=== PATIENT | female | born 1960 | race Caucasian/White ===

== ENCOUNTER 2020-11-23 16:53 | Inpatient (IN) | payer MEDICARE, OTHER ==
[~2020-11-23] VITALS: Ht 167.6 cm; Wt 60.3 kg
[2020-11-23] MEDS ORDERED: NS 1,000 ML IV SCH ×2 (18:30→21:20)
[2020-11-23] MEDS ORDERED: ACETAMINOPHEN 325 MG TAB PO ONE (18:30)
[2020-11-23] MEDS ORDERED: cefTRIAXone SOD 2 GM in D5W MINI-BAG PLUS 50 ML IV ONE (19:05)
[2020-11-23 19:08] LABS: BASO % 0.6 % (0.0-1.0); EOS # 0.1 10^3/uL (0.0-0.5); EOS % 2.2 % (0.0-3.0); HEMATOCRIT 33.9 % (36.0-47.0); HEMOGLOBIN 11.3 g/dl (12.0-15.5); LYMPH # 1.5 10^3/uL (1.5-5.0); LYMPH % 23.8 % (24.0-44.0); MEAN CORPUSCULAR HGB CONC 33.3 g/dl (32.0-36.5); MEAN CORPUSCULAR VOLUME 89.9 fl (80.0-96.0); MONO # 0.5 10^3/uL (0.0-0.8); MONO % 8.3 % (2.0-8.0); NEUTROPHILS # 4.1 10^3/uL (1.5-8.5); NEUTROPHILS % 64.6 % (36.0-66.0); PLATELET COUNT, AUTOMATED 207 10^3/uL (150-450); RED BLOOD COUNT 3.77 10^6/uL (4.00-5.40); WHITE BLOOD COUNT 6.4 10^3/uL (4.0-10.0)
[2020-11-23] MEDS ORDERED: KCL 20MEQ IN 100ML SWI (KRUN) 20 MEQ in IV 1 EA IV ONE ×2 (19:20)
[2020-11-23] MEDS ORDERED: ECOT81TA5 PO (19:22)
[2020-11-23] MEDS ORDERED: SUBO8MIS SL (19:22)
[2020-11-23] MEDS ORDERED: ATOR40TA75 PO (19:22)
[2020-11-23] MEDS ORDERED: SYMB16INH INH (19:22)
[2020-11-23] MEDS ORDERED: ATIV1TAB10 PO (19:22)
[2020-11-23] MEDS ORDERED: REGL10TA6 PO (19:22)
[2020-11-23] MEDS ORDERED: INCR1INH INH (19:22)
[2020-11-23] MEDS ORDERED: QUET300T2 PO (19:22)
[2020-11-23] MEDS ORDERED: LOPR1TAB6 PO (19:22)
[2020-11-23] MEDS ORDERED: ZOFR4TAB16 PO (19:22)
[2020-11-23 19:32] LABS: ALBUMIN 3.7 GM/DL (3.2-5.2); ALT/SGPT 13 U/L (12-78); AMYLASE 31 U/L (25-115); BILIRUBIN,DIRECT 0.2 MG/DL (0.0-0.2); BILIRUBIN,TOTAL 0.4 MG/DL (0.2-1.0); BLOOD UREA NITROGEN 12 MG/DL (7-18); CALCIUM LEVEL 9.6 MG/DL (8.5-10.1); CARBON DIOXIDE LEVEL 21 MEQ/L (21-32); CHLORIDE LEVEL 111 MEQ/L (98-107); CREATININE FOR GFR 1.41 MG/DL (0.55-1.30); GLOMERULAR FILTRATION RATE 40.8 (>51); GLUCOSE, FASTING 68 MG/DL (70-100); POTASSIUM SERUM 3.4 MEQ/L (3.5-5.1); SODIUM LEVEL 142 MEQ/L (136-145); TOTAL PROTEIN 7.1 GM/DL (6.4-8.2)
[2020-11-23 19:36] LABS: RSV AMPLIFICATION NEGATIVE (NEGATIVE)
[2020-11-23] MEDS: KCL 10MEQ/100ML SWI (KRUN) 10 MEQ in IV 1 EA IV SCH ×2 (20:18→20:30)
--- NOTE | 2020-11-23 20:34 | REPVR ---
PROCEDURE INFORMATION: Exam: US Duplex Right Lower Extremity Veins, Limited Exam date and time: 11/23/2020 7:59 PM Age: 60 years old Clinical indication: Pain; Leg, lower; Right; Additional info: R/O dvt TECHNIQUE: Imaging protocol: Real-time Duplex ultrasound of the Right Lower Extremity with 2-D martin scale, color Doppler flow and spectral waveform analysis with image documentation. Limited exam was focused on the right lower extremity veins. COMPARISON: CR Ankle, complete RIGHT 11/23/2020 7:08 PM FINDINGS: Right deep veins: Unremarkable. The common femoral, femoral, proximal profunda femoral, popliteal, posterior tibial and peroneal veins are patent without thrombus. Normal Doppler waveforms. Normal compressibility and/or augmentation response. Right superficial veins: Unremarkable. Saphenofemoral junction is patent without thrombus. Soft tissues: Subcutaneous edema in the calf. IMPRESSION: No sonographic evidence of deep vein thrombosis. Electronically signed by: Angelito Cook On 11/23/2020 20:33:35 PM
[2020-11-23] MEDS ORDERED: IPRAINH INH (20:53)
[2020-11-23] MEDS ORDERED: BUPR15TASR PO (20:53)
[2020-11-23] MEDS ORDERED: BUPR1SUB5 SL (20:53)
[2020-11-23] MEDS ORDERED: HOME MED LIST COMPLETE! XX SCH (20:55)
--- NOTE | 2020-11-23 21:08 | REP ---
INDICATION: INFECTED CHRONIC WOUND RIGHT LOWER LEG. COMPARISON: None. TECHNIQUE: Four views of the right calf. FINDINGS: Four views of the right calf demonstrate normal bones, joints, and soft tissues. No fracture or subluxation is seen. No opaque foreign body noted. There is mild diffuse osteopenia. IMPRESSION: Negative right tib fib series. <Electronically signed by Yony Hunt > 11/23/20 0401
--- NOTE | 2020-11-23 21:10 | REP ---
INDICATION: INFECTED CHRONIC WOUND RIGHT LOWER LEG. COMPARISON: None. TECHNIQUE: Four views of the right ankle. FINDINGS: Ankle mortise is intact. There is an old accessory ossicle adjacent to the distal fibular tip. There is diffuse soft tissue swelling. No fracture or subluxation is seen. There is soft tissue irregularity and soft tissue deficiency in the pretibial soft tissues anterolaterally in the distal calf. This may correspond with the ulcer. IMPRESSION: No fracture noted. Soft tissue swelling and deficiency consistent with a soft tissue wound in the anterolateral pretibial soft tissues. <Electronically signed by Yony Hunt > 11/23/20 [id number]
[2020-11-23] MEDS ORDERED: VANCOMYCIN HCL 1,000 MG, VIAL MATE ADAPTER 1 EACH in NS 250 ML IV SCH (21:15)
[2020-11-23] MEDS ORDERED: ONDANSETRON 4 MG TAB PO PRN (21:20)
[2020-11-23] MEDS ORDERED: POTASSIUM CHLORIDE 10MEQ SR TABLET PO ONE (21:35)
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
[2020-11-23] MEDS ORDERED: VANCOMYCIN HCL 750 MG, VIAL MATE ADAPTER 1 EACH in NS 250 ML IV ONE (22:00)
[2020-11-23] MEDS: SYMBICORT 160/4.5MCG INHALER 6GM INH SCH (22:11)
[2020-11-23 22:20] VITALS: BP 137/77
--- NOTE | 2020-11-23 22:26 | REPVR ---
PROCEDURE INFORMATION: Exam: US Retroperitoneal; Complete; Kidneys and Bladder Exam date and time: 11/23/2020 10:13 PM Age: 60 years old Clinical indication: Abnormal findings; Abnormal lab test; Abnormal function test of other organs/systems; Additional info: [place] TECHNIQUE: Imaging protocol: Real-time ultrasound of the retroperitoneum with image documentation. Complete exam focused on the kidneys and bladder. COMPARISON: No relevant prior studies available. FINDINGS: Right kidney: 10.5 cm in length. No stones. No hydronephrosis. Left kidney: 10.1 cm in length. No stones. No hydronephrosis. Urinary bladder: Unremarkable. IMPRESSION: No acute sonographic findings. Electronically signed by: Angelito Cook On 11/23/2020 22:26:20 PM
--- NOTE | 2020-11-23 22:59 | REPVR ---
PROCEDURE INFORMATION: Exam: XR Chest Exam date and time: 11/23/2020 10:05 PM Age: 60 years old Clinical indication: Wheezing TECHNIQUE: Imaging protocol: XR of the chest. Views: 1 view. COMPARISON: No relevant prior studies available. FINDINGS: Tubes, catheters and devices: Right-sided chest port in place. Lungs: Hyperinflated. No consolidation. Pleural spaces: Unremarkable. No pleural effusion. No pneumothorax. Heart/Mediastinum: Unremarkable. No cardiomegaly. Bones/joints: No acute osseous abnormality. Mild degenerative changes. IMPRESSION: No acute radiographic findings. Electronically signed by: Angelito Cook On 11/23/2020 22:58:52 PM
[2020-11-23] MEDS ORDERED: VANCOMYCIN HCL 500 MG in D5W MINI-BAG PLUS 100 ML IV ONE (23:00)
[2020-11-24] MEDS: METOCLOPRAMIDE 10 MG TAB PO SCH ×5 (00:20→21:00)
[2020-11-24] MEDS: METOPROLOL TART 50 MG TAB PO SCH ×2 (00:20→21:00)
[2020-11-24] MEDS: buPROPion **SR TABLET** (ZYBAN) 150MG PO SCH ×3 (00:21→21:00)
[2020-11-24] MEDS: ACETAMINOPHEN TAB 650MG DOSE (2X325MG) PO PRN ×2 (00:22→13:34)
[2020-11-24] MEDS: LORazepam 0.5 MG TAB PO PRN (00:35)
[2020-11-24] MEDS: QUEtiapine FUMARATE 100 MG TAB PO SCH ×2 (00:49→21:00)
[2020-11-24] MEDS ORDERED: GABAPENTIN 100 MG CAP PO ONE (01:30)
[2020-11-24] MEDS ORDERED: SODIUM CHLORIDE 0.9% INJ 10 ML SYR IV PRN (02:20)
[2020-11-24 06:43] LABS: HEMATOCRIT 28.8 % (36.0-47.0); MEAN CORPUSCULAR HEMOGLOBIN 29.2 pg (27.0-33.0); MEAN CORPUSCULAR HGB CONC 32.3 g/dl (32.0-36.5); MEAN CORPUSCULAR VOLUME 90.6 fl (80.0-96.0); PLATELET COUNT, AUTOMATED 131 10^3/uL (150-450); RED BLOOD COUNT 3.18 10^6/uL (4.00-5.40); WHITE BLOOD COUNT 3.8 10^3/uL (4.0-10.0)
[2020-11-24 06:54] VITALS: BP 90/49
[2020-11-24 06:54] LABS: HEMOGLOBIN 9.3 g/dl (12.0-15.5)
[2020-11-24 07:10] LABS: BLOOD UREA NITROGEN 11 MG/DL (7-18); CALCIUM LEVEL 8.5 MG/DL (8.5-10.1); CARBON DIOXIDE LEVEL 25 MEQ/L (21-32); CHLORIDE LEVEL 115 MEQ/L (98-107); CREATININE FOR GFR 0.99 MG/DL (0.55-1.30); GLOMERULAR FILTRATION RATE > 60.0 (>51); GLUCOSE, FASTING 104 MG/DL (70-100); POTASSIUM SERUM 3.8 MEQ/L (3.5-5.1); SODIUM LEVEL 146 MEQ/L (136-145)
[2020-11-24 07:30] VITALS: BP 92/54
[2020-11-24] MEDS: SYMBICORT 160/4.5MCG INHALER 6GM INH SCH ×2 (07:40→23:23)
[2020-11-24] MEDS: IPRATROPIUM HFA INHALER 12.9 GRAMS (ATROVENT HFA) INH SCH ×2 (07:40→23:23)
[2020-11-24] MEDS: GABAPENTIN 100 MG CAP PO SCH ×3 (08:11→21:00)
[2020-11-24] MEDS: BUPRENORPHINE/NALOXONE 8-2MG SUBLINGUAL TABLET(SUBOXONE) SL SCH (08:11)
[2020-11-24] MEDS: SODIUM CHLORIDE 0.9% INJ 10 ML SYR IV SCH ×2 (08:11→08:58)
[2020-11-24] MEDS: NICOTINE 14 MG/24 HR TRANSDERMAL TD SCH (08:12)
[2020-11-24 09:27] LABS: HIV 1&2 SCREEN CENTAUR NEGATIVE (NEGATIVE)
[2020-11-24 11:44] VITALS: BP 117/69
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
--- NOTE | 2020-11-24 13:22 | MHCRPDOC ---
[facility] Consultation Consultation DATE OF CONSULTATION: 11/24/20 CONSULTATION REQUESTED BY: Medical team REASON FOR CONSULTATION: suicidal statement made to nurse RELEVANT HISTORY: Patient is a 60 y/o woman with a past psychiatric history depression and polysubstance abuse who presented to the hospital for treatment of leg wounds due to poor circulation. During her treatment she made a vague suicidal statement. She reports she was in pain and emotional over her situation, "me and my son have not being getting along due to my past and I realize we need some space and I plan on returning to [facility]". She denies any suicidal thoughts, intent or plan since 2002 when she had a failed attempt "thank god" where she thought about shooting herself, "I was drinking alot of alcohol and intoxicated at the time, but I have been clean for 15 years and not been suicidal since then. States since that time has been taking her wellbutrin 150 mg bid, seroquel 300 mg qhs and suboxone 8-2x2 daily. She also reports not using opioid pills since at least 10 years, prior to that time had a history of heroin use. States she smokes 6 cigarettes daily, has cut down over the years from 2 packs daily, understanding this may exasperate her symptoms of poor peripheral circulation and affect overall health. She denies depression, reports no generalized anxiety and states due to current situational stressors felt overwhelmed, but no hopelessness or helpessness. On interview she is bright and full in affect, also future oriented with strong support system. per collateral: marj King obtained: "I talked with her after admission to hospital, also 4 days ago. She seems okay, she was concerned with her leg. No suicidal thoughts, no change from her usual self. We talked about the challenges of her moving to [place]. NO recent suicidal thoughts or behavior, none for over 10-12 years. She seemed fine last week. She gets emotional sometimes." PAST PSYCHIATRIC HISTORY: hx of depression and polysubstance abuse. 2x inpatient in 2002 in [facility], [facility] in [place] both occasions PAST MEDICAL HISTORY: see care summary FAMILY HISTORY: none patient aware of. PERSONAL AND SOCIAL HISTORY: The patient was born and raised in [facility] Resides in: [facility] with her son, plans on moving back to [facility] Marital Status: Legally Children: adult son Employment: on disability SUBSTANCE ABUSE HISTORY: Smokin cigarettes per day ETOH: none in recent years Illicit Drugs: remote hx of heroin, opioid use, on suboxone LEGAL HISTORY:denies MENTAL STATUS EXAMINATION: Patient is a 60-year old female, who is in no acute distress, thin, shows me scabs from healing wounds on R leg, good hygiene, glasses, appears stated age. Speech is normal, spontaneous Language skills are good Thought processes including: linear, logical, coherent Thought content: denies suicidal ideation, intent or plan Abstract reasoning, and computation: good Description of associations: normal Description of abnormal or psychotic thoughts: none Judgment: good Insight: good Orientation to x4 Recent and remote memory: intact Attention span and concentration: good Language: zambian Fund of knowledge: average Mood: "good" Affect: euthymic, full, smiles and laughs, appropriate, mood congruent DIAGNOSIS: 1. adjustment disorder 2. hx of polysubstance abuse 3. Tobacco use disorder CSSRS within last month: Suicidal ideation: none Suicidal intent with or without plan: negative Suicide attempts in last 3 months: 0 Lifetime attempts: 1x, remote in 2002 Risk for suicide is low based on CSSRS, history, modifiable and non-modifiable risk factors, takes medications, has strong support system, future oriented. PLAN: 1. Continue home medications, see hpi, consider offering a form of nicotine supplementation, ex. patch or gum to help with cessation 2. Does not meet criteria for involuntary admission, refuses voluntary admission, create a safety plan and establish an outpatient mental health ap pointment within 5 days. Vital Signs Vital Signs Date Time Temp Pulse Resp B/P (MAP) Pulse Ox O2 Delivery O2 Flow Rate FiO2 11/24/20 11:44 57 117/69 (85) 11/24/20 07:41 16 11/24/20 06:54 97.8 94 11/23/20 22:20 Room Air Laboratory Data 24H Labs Laboratory Tests 2 11/23/20 18:30: Immature Granulocyte % (Auto) 0.5, Neutrophils (%) (Auto) 64.6, Lymphocytes (%) (Auto) 23.8L, Monocytes (%) (Auto) 8.3H, Eosinophils (%) (Auto) 2.2, Basophils (%) (Auto) 0.6, Neutrophils # (Auto) 4.1, Lymphocytes # (Auto) 1.5, Monocytes # (Auto) 0.5, Eosinophils # (Auto) 0.1, Basophils # (Auto) 0.0, Nucleated Red Blood Cells % (auto) 0.0, Anion Gap 10, Glomerular Filtration Rate 40.8L, Lactic Acid Level 0.9, Calcium Level 9.6, Total Bilirubin 0.4, Direct Bilirubin 0.2, Aspartate Amino Transf (AST/SGOT) 16, Alanine Aminotransferase (ALT/SGPT) 13, Alkaline Phosphatase 77, C-Reactive Protein, Quantitative 1.20H, Total Protein 7.1, Albumin 3.7, Albumin/Globulin Ratio 1.1L, Amylase Level 31, Coronavirus (COVID-19)(PCR) NEGATIVE, HIV Antigen/Antibody Combo Qual NEGATIVE, Influenza Type A (RT-PCR) NEGATIVE, Influenza Type B (RT-PCR) NEGATIVE, Respiratory Syncyt ial Virus (PCR) NEGATIVE 11/23/20 18:53: POC Glucose (Misc Panel) 75, POC Sodium (Misc Panel) 141, POC Potassium (Misc Panel) 3.2L, POC Chloride (Misc Panel) 109, POC Total CO2 (Misc Panel) 22.0L, POC Blood Urea Nitrogen (Misc Panel 12, POC Ionized Calcium (Misc Panel) 4.6, POC Creatinine (Misc Panel) 1.4H, POC Hematocrit (Misc Panel) 33.0L 11/24/20 06:08: Nucleated Red Blood Cells % (auto) 0.0, Anion Gap 6L, Glomerular Filtration Rate > 60.0, Calcium Level 8.5, Magnesium Level 2.0 11/24/20 06:25: Methicillin-Resist S.aureus DNA PCR NOT DETECTED Home Medications Current Medications Current Medications Medications (Trade) Dose Ordered Sig/Ren Route PRN Reason Start Time Stop Time Status Last Admin Dose Admin Acetaminophen (Tylenol Tab) 650 mg Q4H PRN PO MILD PAIN or TEMP > 101 11/23/20 21:15 11/24/20 00:22 Aspirin (Ecotrin) 81 mg QHS PO 11/24/20 21:00 Atorvastatin Calcium (Lipitor) 40 mg QHS PO 11/24/20 21:00 Budesonide/ Formoterol Fumarate (Symbicort 160/ 4.5mcg) 2 puff RBID INH 11/23/20 20:00 11/24/20 07:40 Buprenorphine/ Naloxone (Suboxone 8/2mg) 2 tab DAILY SL 11/24/20 09:00 11/24/20 08:11 Bupropion HCl (Zyban, Wellbutrin Sr) 150 mg BID PO 11/23/20 21:00 11/24/20 09:07 Gabapentin (Neurontin) 100 mg TID PO 11/24/20 09:00 11/24/20 08:11 Heparin Sodium (Heparin (Flush)) 500 units ASDIRECTED PRN IV SEE LABEL COMMENTS 11/24/20 02:20 11/24/20 12:27 Heparin Sodium (Heparin (Flush)) 500 units DAILY IV 11/24/20 09:00 Home Med (Home Med List Complete!) ASDIRECTED XX 11/23/20 20:55 11/23/20 20:57 DC Ipratropium [place] (Atrovent Hfa) 2 puff RBID INH 11/24/20 08:00 11/24/20 07:40 Lorazepam (Ativan) 0.5 mg BID PRN PO anxiety 11/23/20 21:20 11/24/20 00:35 Metoclopramide HCl (Reglan) 10 mg ACHS PO 11/23/20 21:00 11/24/20 12:26 Metoprolol Tartrate (Lopressor) 50 mg QHS PO 11/23/20 21:00 11/24/20 00:20 Nicotine (Nicoderm Cq 14mg) 1 patch DAILY TD 11/24/20 09:00 11/24/20 08:12 Ondansetron HCl (Zofran) 4 mg Q6HP PRN PO nausea/vomiting 11/23/20 21:20 Potassium Chloride 10 meq/ IV Miscellaneous Supplies 100 ml @ 100 mls/hr 1930,2030,2130 IV 11/23/20 19:30 11/23/20 21:32 DC 11/23/20 20:18 Quetiapine Fumarate (SEROquel) 300 mg QHS PO 11/23/20 21:00 11/24/20 00:49 Sodium Chloride 1,000 ml @ 100 mls/hr Q10H IV 11/23/20 18:30 11/23/20 21:29 DC 11/23/20 18:30 Sodium Chloride 1,000 ml @ 100 mls/hr Q10H IV 11/23/20 21:20 11/24/20 12:06 DC 11/24/20 00:23 Sodium Chloride (Saline Lock Flush) 10 ml ASDIRECTED PRN IV SEE LABEL COMMENTS 11/24/20 02:20 11/24/20 12:27 Sodium Chloride (Saline Lock Flush) 10 ml DAILY IV 11/24/20 09:00 Vancomycin HCl 1000 mg/IV Miscellaneous Supplies 1 each/ Sodium Chloride 270 ml @ 270 mls/hr Q12H IV 11/23/20 21:15 11/24/20 01:34 DC Vancomycin HCl 1000 mg/IV Miscellaneous Supplies 1 each/ Sodium Chloride 270 ml @ 270 mls/hr Q18H IV 11/24/20 20:00 11/24/20 09:59 DC Scheduled Aspirin (Ecotrin) 81 Mg Tablet.dr, 81 MG PO QHS, (Reported) Atorvastatin Calcium (Atorvastatin Calcium) 40 Mg Tablet, 40 MG PO QHS, (Reported) Budesonide/Formoterol (Symbicort 160-4.5 Mcg Inhaler) 6 Gm Hfa.aer.ad, 2 PUFF INH BID, (Reported) Buprenorphine HCl/Naloxone HCl (Buprenorphin-Naloxon 8-2 mg Sl) 1 Each Tab.subl, 2 TAB SL DAILY, (Reported) Bupropion HCl (Bupropion HCl Sr) 150 Mg Tab.er.12h, 150 MG PO BID, (Reported) Ipratropium [place] (Atrovent Hfa) 12.9 Gm Hfa.aer.ad, 2 PUFF INH BID, (Reported) Metoclopramide HCl (Reglan) 10 Mg Tablet, 10 MG PO QID, (Reported) before food and bedtime Metoprolol Tartrate (Lopressor) 50 Mg Tablet, 50 MG PO QHS, (Reported) Quetiapine Fumarate (Quetiapine Fumarate) 300 Mg Tablet, 300 MG PO QHS, (Reported) Umeclidinium [place] (Incruse Ellipta) 62.5 Mcg Blst.w.dev, 1 PUFF INH DAILY, (Reported) Scheduled PRN Lorazepam (Ativan) 0.5 Mg Tablet, 0.5 MG PO BID PRN for anxiety, (Reported) Ondansetron HCl (Zofran) 4 Mg Tablet, 4 MG PO Q6-8HP PRN for nausea/vomiting, (Reported) Allergies Coded Allergies: Penicillins (Verified Allergy, Mild, HIVES, 11/23/20) nitrofurantoin (Verified Allergy, Mild, RASH, 11/23/20) Sulfa (Sulfonamide Antibiotics) (Verified Adverse Reaction, Mild, VOMITING, 11/23/20) codeine (Verified Adverse Reaction, Mild, VOMTING, 11/23/20) JOSEPH BHANDARI MD Nov 24, 2020 13:22
--- NOTE | 2020-11-24 13:52 | CR.PDOC ---
General Date of Consultation: Nov 24, [address] Howe. HISTORY OF PRESENT ILLNESS: The patient is a 60-year-old female with chronic right lower extremity wound, general surgery consulted for consideration of jimmy najera. The patient reports she has 2 wounds on the right lower extremity. One has been chronic and the other occurred more recently when she was kayaking with her son. The other chronic wound she states has been there since 2002. ALLERGIES: Please see below. HOME MEDICATIONS: Please see below. PAST MEDICAL HISTORY: History of polysubstance use, on Suboxone Cyclic vomiting syndrome COPD Hypertension AAA Past surgical history Hysterectomy Cholecystectomy Appendectomy Yvzgza-[id number] placement SOCIAL HISTORY: Current smoker Previous alcohol and polysubstance use but states she has been off any substances for several years, on Suboxone therapy. REVIEW OF SYSTEMS: As noted in HPI otherwise 10 point review of systems unremarkable. PHYSICAL EXAMINATION: VITAL SIGNS: Please see below. GENERAL APPEARANCE: No acute distress, resting comfortably in bed. HEENT:MMM ABDOMEN: Soft, nontender EXTREMITIES: Right lower extremity with chronic venous stasis changes with dry scaling skin up to the mid to proximal pretibial area. 2 wounds noted on the distal right lower extremity, one is more lateral and one is on the anterior aspect. Dry eschar is noted. There does not appear to be any drainage from the wound. DP/PT pulses were able to be palpated bilaterally. No significant edema. The toes and feet are warm and brisk capillary refill at the tips of the toes was noted. LABORATORY DATA: Please see below. Right lower extremity venous ultrasound negative for DVT. ASSESSMENT/PLAN: Chronic right lower extremity wound. The patient is reviewed and examined as per Dr Howe. Appears consistent with chronic venous stasis. No surgical intervention or debridement would be recommended at this time. Wet to dry dressing twice daily recommended. Wrap with Ino wrap from the ankle to the knee for light compression. Would recommend elevation. Consider outpatient follow-up with wound care. Reconsult if needed Vital Signs/I&O Vital Signs Date Time Temp Pulse Resp B/P (MAP) Pulse Ox O2 Delivery O2 Flow Rate FiO2 11/24/20 11:44 57 117/69 (85) 11/24/20 07:41 16 11/24/20 06:54 97.8 94 11/23/20 22:20 Room Air I&O- Last 24 Hours up to 6 AM 11/24/20 06:00 Intake Total 435 ml Balance 435 ml Laboratory Data Labs 24H Laboratory Tests 2 11/23/20 18:30: Immature Granulocyte % (Auto) 0.5, Neutrophils (%) (Auto) 64.6, Lymphocytes (%) (Auto) 23.8L, Monocytes (%) (Auto) 8.3H, Eosinophils (%) (Auto) 2.2, Basophils (%) (Auto) 0.6, Neutrophils # (Auto) 4.1, Lymphocytes # (Auto) 1.5, Monocytes # (Auto) 0.5, Eosinophils # (Auto) 0.1, Basophils # (Auto) 0.0, Nucleated Red Blood Cells % (auto) 0.0, Anion Gap 10, Glomerular Filtration Rate 40.8L, Lactic Acid Level 0.9, Calcium Level 9.6, Total Bilirubin 0.4, Direct Bilirubin 0.2, Aspartate Amino Transf (AST/SGOT) 16, Alanine Aminotransferase (ALT/SGPT) 13, Alkaline Phosphatase 77, C-Reactive Protein, Quantitative 1.20H, Total Protein 7.1, Albumin 3.7, Albumin/Globulin Ratio 1.1L, Amylase Level 31, Coronavirus (COVID-19)(PCR) NEGATIVE, HIV Antigen/Antibody Combo Qual NEGATIVE, Influenza Type A (RT-PCR) NEGATIVE, Influenza Type B (RT-PCR) NEGATIVE, Respiratory Syncytial Virus (PCR) NEGATIVE 11/23/20 18:53: POC Glucose (Misc Panel) 75, POC Sodium (Misc Panel) 141, POC Potassium (Misc Panel) 3.2L, POC Chloride (Misc Panel) 109, POC Total CO2 (Misc Panel) 22.0L, POC Blood Urea Nitrogen (Misc Panel 12, POC Ionized Calcium (Misc Panel) 4.6, POC Creatinine (Misc Panel) 1.4H, POC Hematocrit (Misc Panel) 33.0L 11/24/20 06:08: Nucleated Red Blood Cells % (auto) 0.0, Anion Gap 6L, Glomerular Filtration Rate > 60.0, Calcium Level 8.5, Magnesium Level 2.0 11/24/20 06:25: Methicillin-Resist S.aureus DNA PCR NOT DETECTED CBC/BMP Laboratory Tests 11/23/20 18:30 11/24/20 06:08 Microbiology Microbiology 11/23/20 Blood Culture, Received Pending 11/23/20 Blood Culture, Received Pending Allergies Coded Allergies: Penicillins (Verified Allergy, Mild, HIVES, 11/23/20) nitrofurantoin (Verified Allergy, Mild, RASH, 11/23/20) Sulfa (Sulfonamide Antibiotics) (Verified Adverse Reaction, Mild, VOMITING, 11/23/20) codeine (Verified Adverse Reaction, Mild, VOMTING, 11/23/20) Home Medications Scheduled Aspirin (Ecotrin) 81 Mg Tablet.dr, 81 MG PO QHS, (Reported) Atorvastatin Calcium (Atorvastatin Calcium) 40 Mg Tablet, 40 MG PO QHS, (Reported) Budesonide/Formoterol (Symbicort 160-4.5 Mcg Inhaler) 6 Gm Hfa.aer.ad, 2 PUFF INH BID, (Reported) Buprenorphine HCl/Naloxone HCl (Buprenorphin-Naloxon 8-2 mg Sl) 1 Each Tab.subl, 2 TAB SL DAILY, (Reported) Bupropion HCl (Bupropion HCl Sr) 150 Mg Tab.er.12h, 150 MG PO BID, (Reported) Ipratropium [place] (Atrovent Hfa) 12.9 Gm Hfa.aer.ad, 2 PUFF INH BID, (Reported) Metoclopramide HCl (Reglan) 10 Mg Tablet, 10 MG PO QID, (Reported) before food and bedtime Metoprolol Tartrate (Lopressor) 50 Mg Tablet, 50 MG PO QHS, (Reported) Quetiapine Fumarate (Quetiapine Fumarate) 300 Mg Tablet, 300 MG PO QHS, (Reported) Umeclidinium [place] (Incruse Ellipta) 62.5 Mcg Blst.w.dev, 1 PUFF INH DAILY, (Reported) Scheduled PRN Lorazepam (Ativan) 0.5 Mg Tablet, 0.5 MG PO BID PRN for anxiety, (Reported) Ondansetron HCl (Zofran) 4 Mg Tablet, 4 MG PO Q6-8HP PRN for nausea/vomiting, (Reported) Amalia Pedroza Nov 24, 2020 13:52
[2020-11-24 14:42] VITALS: BP 138/76
[2020-11-24 15:14] LABS: APPEARANCE, URINE HAZY (CLEAR); BACTERIA, URINE AUTO NEGATIVE (NEGATIVE); BILIRUBIN, URINE AUTO NEGATIVE (NEGATIVE); BLOOD, URINE BLOOD NEGATIVE (NEGATIVE); COLOR, URINE YELLOW (YELLOW); GLUCOSE, URINE (UA) AUTO NEGATIVE (NEGATIVE); KETONE, URINE AUTO NEGATIVE (NEGATIVE); LEUKOCYTE ESTERASE, URINE AUTO NEGATIVE (NEGATIVE); MUCUS, URINE SMALL (NEGATIVE); NITRITE, URINE AUTO NEGATIVE (NEGATIVE); PROTEIN, URINE AUTO 1+ mg/dL (NEGATIVE); RBC, URINE AUTO 3 /HPF (0-3); SPECIFIC GRAVITY URINE AUTO 1.023 (1.002-1.035); SQUAMOUS EPITHELIAL CELL UR AU 2 /HPF (0-6); TRANSITIONAL EPITHELIAL AUTO 2 /HPF; UROBILINOGEN, URINE AUTO 0.2 mg/dL (0.0-2.0); WBC, URINE AUTO 10 /HPF (0-3)
[2020-11-24 15:38] LABS: TOTAL PROTEIN,RANDOM URINE 54.8 MG/DL (0.0-12.0)
[2020-11-24] MEDS ORDERED: VANCOMYCIN HCL 1,000 MG, VIAL MATE ADAPTER 1 EACH in NS 250 ML IV SCH (20:00)
[2020-11-24 20:34] VITALS: BP 136/74
[2020-11-24] MEDS: ATORVASTATIN 20 MG TAB PO SCH (21:00)
[2020-11-24] MEDS: ASPIRIN 81MG ENTERIC TABLET PO SCH (21:00)
[2020-11-25 06:58] LABS: HEMATOCRIT 30.5 % (36.0-47.0); HEMOGLOBIN 9.9 g/dl (12.0-15.5); MEAN CORPUSCULAR HEMOGLOBIN 29.9 pg (27.0-33.0); MEAN CORPUSCULAR HGB CONC 32.5 g/dl (32.0-36.5); MEAN CORPUSCULAR VOLUME 92.1 fl (80.0-96.0); PLATELET COUNT, AUTOMATED 151 10^3/uL (150-450); RED BLOOD COUNT 3.31 10^6/uL (4.00-5.40); WHITE BLOOD COUNT 5.1 10^3/uL (4.0-10.0)
[2020-11-25 07:19] LABS: BLOOD UREA NITROGEN 8 MG/DL (7-18); CARBON DIOXIDE LEVEL 25 MEQ/L (21-32); CHLORIDE LEVEL 114 MEQ/L (98-107); CREATININE FOR GFR 0.79 MG/DL (0.55-1.30); GLOMERULAR FILTRATION RATE > 60.0 (>51); GLUCOSE, FASTING 76 MG/DL (70-100); MAGNESIUM LEVEL 1.7 MG/DL (1.8-2.4); POTASSIUM SERUM 4.6 MEQ/L (3.5-5.1); SODIUM LEVEL 144 MEQ/L (136-145)
[2020-11-25] MEDS: IPRATROPIUM HFA INHALER 12.9 GRAMS (ATROVENT HFA) INH SCH ×2 (07:33→21:05)
[2020-11-25] MEDS: SYMBICORT 160/4.5MCG INHALER 6GM INH SCH ×2 (07:33→21:04)
[2020-11-25] MEDS ORDERED: FLUBLOK(EGG FREE)(QUAD)INFLUENZA VACC 0.5ML SYRINGE 18YRS & OLDER IM ONE (09:00)
[2020-11-25] MEDS: METOCLOPRAMIDE 10 MG TAB PO SCH ×4 (09:02→21:05)
[2020-11-25] MEDS: SODIUM CHLORIDE 0.9% INJ 10 ML SYR IV SCH (09:02)
[2020-11-25] MEDS: GABAPENTIN 100 MG CAP PO SCH ×3 (09:02→21:06)
[2020-11-25] MEDS: buPROPion **SR TABLET** (ZYBAN) 150MG PO SCH ×2 (09:02→21:06)
[2020-11-25] MEDS: NICOTINE 14 MG/24 HR TRANSDERMAL TD SCH (09:04)
[2020-11-25] MEDS: BUPRENORPHINE/NALOXONE 8-2MG SUBLINGUAL TABLET(SUBOXONE) SL SCH (09:18)
[2020-11-25] MEDS: ACETAMINOPHEN TAB 650MG DOSE (2X325MG) PO PRN ×2 (12:48→18:57)
[2020-11-25 14:00] VITALS: BP 133/77
--- NOTE | 2020-11-25 16:15 | IPNPDOC ---
Text Note Date of Service The patient was seen on 11/25/20. NOTE Subjective: No any acute events overnight. Patient denied any suicidal ideat ion. Objective: GENERAL APPEARANCE: NAD HEENT: no scleral icterus, no JVD, EOMI CARDIOVASCULAR: S1S2 LUNGS: Diminished lung sounds bilaterally ABDOMEN: soft & not tender w palpation MUSCULOSKELETAL: Unstageable wound with thick eschar of the distal anterior part of the right leg, wound with eschar of the right calf INTEGUMENT: no generalized pallor NEUROLOGICAL: cranial nerve function from 2-12 intact, follows commands, speech not dysarthric Assessment and plan Patient is 60-year-old female with a past medical history of polysubstance abuse on Suboxone, COPD, hypertension, AAA who reported to the emergency department on 11 23 with chief complaint of worsening right lower extremity wound that began 1 month ago. Patient was diagnosed with right lower extremity wounds and acute kidney injury Right lower extremity wounds Most likely secondary to peripheral vascular disease No visible pus or swelling around Appreciate/agree with clinical informatics specialist consult FROYLAN Resolved Hyponatremia Resolved COPD not in acute exacerbation Continue home inhalers Hypertension Continue home meds Substance use disorder Continue Suboxone. Hyperlipidemia Continue atorvastatin. Nicotine dependence. On Wellbutrin. Nicotine patch is been ordered. Suicidal ideation/depression. Psych team consulted her. Patient is not suicidal anymore. She was cleared for discharge Cyclic vomiting syndrome. Continue Reglan. DVT Prophylaxis Heparin twice daily VS,Fishbone, I+O VS, Fishbone, I+O Laboratory Tests 11/25/20 06:26 Vital Signs Date Time Temp Pulse Resp B/P (MAP) Pulse Ox O2 Delivery O2 Flow Rate FiO2 11/25/20 14:00 98.2 60 18 133/77 (95) 95 Room Air I&O- Last 24 Hours up to 6 AM 11/25/20 06:00 Intake Total 1280 ml Output Total 100 ml Balance 1180 ml GLEN KING DO Nov 25, 2020 16:15
[2020-11-25 21:02] VITALS: BP 135/75
[2020-11-25 21:05] VITALS: BP 135/75
[2020-11-25] MEDS: QUEtiapine FUMARATE 100 MG TAB PO SCH (21:05)
[2020-11-25] MEDS: METOPROLOL TART 50 MG TAB PO SCH (21:05)
[2020-11-25] MEDS: LORazepam 0.5 MG TAB PO PRN (21:05)
[2020-11-25] MEDS: HEPARIN SOD (PORCINE) 5000UNITS/ML 1ML VIAL/SYRINGE SQ SCH (21:06)
[2020-11-25] MEDS: ATORVASTATIN 20 MG TAB PO SCH (21:06)
[2020-11-25] MEDS: ASPIRIN 81MG ENTERIC TABLET PO SCH (21:06)
[2020-11-26 06:00] VITALS: BP 136/78
[2020-11-26] MEDS: SYMBICORT 160/4.5MCG INHALER 6GM INH SCH ×2 (07:21→19:57)
[2020-11-26] MEDS: IPRATROPIUM HFA INHALER 12.9 GRAMS (ATROVENT HFA) INH SCH ×2 (07:21→19:57)
[2020-11-26] MEDS: SODIUM CHLORIDE 0.9% INJ 10 ML SYR IV SCH (08:53)
[2020-11-26] MEDS: HEPARIN SOD (PORCINE) 5000UNITS/ML 1ML VIAL/SYRINGE SQ SCH (08:53)
[2020-11-26] MEDS: NICOTINE 14 MG/24 HR TRANSDERMAL TD SCH (08:54)
[2020-11-26] MEDS: GABAPENTIN 100 MG CAP PO SCH ×2 (08:54→18:07)
[2020-11-26] MEDS: BUPRENORPHINE/NALOXONE 8-2MG SUBLINGUAL TABLET(SUBOXONE) SL SCH (08:54)
[2020-11-26] MEDS: buPROPion **SR TABLET** (ZYBAN) 150MG PO SCH (08:55)
[2020-11-26] MEDS: ACETAMINOPHEN TAB 650MG DOSE (2X325MG) PO PRN ×2 (08:55→13:16)
[2020-11-26] MEDS: METOCLOPRAMIDE 10 MG TAB PO SCH ×3 (08:55→18:07)
[2020-11-26] MEDS: LORazepam 0.5 MG TAB PO PRN (10:40)
[2020-11-26 12:02] LABS: HEMATOCRIT 29.8 % (36.0-47.0); MEAN CORPUSCULAR HEMOGLOBIN 30.2 pg (27.0-33.0); MEAN CORPUSCULAR HGB CONC 33.6 g/dl (32.0-36.5); PLATELET COUNT, AUTOMATED 129 10^3/uL (150-450); RED BLOOD COUNT 3.31 10^6/uL (4.00-5.40); WHITE BLOOD COUNT 3.8 10^3/uL (4.0-10.0)
[2020-11-26 13:03] LABS: BLOOD UREA NITROGEN 9 MG/DL (7-18); CALCIUM LEVEL 8.8 MG/DL (8.5-10.1); CARBON DIOXIDE LEVEL 25 MEQ/L (21-32); CHLORIDE LEVEL 113 MEQ/L (98-107); CREATININE FOR GFR 0.69 MG/DL (0.55-1.30); GLOMERULAR FILTRATION RATE > 60.0 (>51); GLUCOSE, FASTING 82 MG/DL (70-100); MAGNESIUM LEVEL 1.6 MG/DL (1.8-2.4); POTASSIUM SERUM 4.4 MEQ/L (3.5-5.1); SODIUM LEVEL 142 MEQ/L (136-145)
[2020-11-26 14:50] VITALS: BP 133/71
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
--- NOTE | 2020-11-26 17:17 | ECGEPIP ---
[facility] - ED Test Date: 2020-11-23 Pat Name: THERESA MENDES Department: Room: [place] [address] Gender: Female Manager Outpatient: DORIS : [id number] Requested By: Rema Dc PA-C Order Number: [id number] Reading MD: Chelita Rodríguez Measurements Intervals [place] Rate: 66 P: 73 HI: 148 QRS: 71 QRSD: 94 T: 68 QT: 400 QTc: 419 Interpretive Statements Normal sinus rhythm NSTTW abnormalities No prior Electronically Signed on 11-26-2020 17:16:53 EDT by Chelita Rodríguez
--- NOTE | 2020-11-26 18:06 | REP ---
INDICATION: Peripheral arterial disease COMPARISON: None. TECHNIQUE: Real-time sonographic evaluation of the lower extremity arteries with Doppler FINDINGS: All numeric values represent peak systolic velocities in cm/SEC On the right: The ankle brachial index was unobtainable FRUIT WASHER: 129 triphasic Profunda: 89.4 triphasic SFA proximal: 87.0 triphasic SFA Mid: 103 triphasic SFA distal: 84.7 triphasic Popliteal: 75.2 triphasic THADDEUS proximal: 63.4 triphasic Tibioperoneal trunk: 51.1 triphasic COMPUTER BOOKKEEPER proximal: 43.2 triphasic COMPUTER BOOKKEEPER distal: 47.2 triphasic THADDEUS distal: 38.5 triphasic On the left: Ankle brachial index is 1.1 FRUIT WASHER: 113 triphasic Profunda: 93.6 triphasic SFA proximal: 84.9 triphasic SFA Mid: 112 triphasic SFA distal: 76.3 triphasic Popliteal: 75.2 triphasic THADDEUS proximal: 65.4 triphasic Tibioperoneal trunk: 61.9 triphasic COMPUTER BOOKKEEPER proximal: 81.1 triphasic COMPUTER BOOKKEEPER distal: 66.3 triphasic THADDEUS distal: 40.8 biphasic Mild plaque was seen bilaterally IMPRESSION: As above <Electronically signed by Otis Liu > 11/26/20 2012
[2020-11-26] MEDS ORDERED: GABA-1171 PO (18:15)
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
== END 2020-11-26 19:36 | disposition home or self-care (01) | DRG 300 ==
LOC: M ED 16:53 → M ED INP 21:11 → ENRESERV 21:35 → M MS5PR 22:40
PROVIDERS: ADMIT Family Medicine; ATTEND Internal Medicine
DX: I83.012 Varicose veins of right lower extremity with ulcer of calf (principal); N17.9 Acute kidney failure, unspecified; E87.1 Hypo-osmolality and hyponatremia; R45.851 Suicidal ideations; R11.15 Cyclical vomiting syndrome unrelated to migraine; J44.9 Chronic obstructive pulmonary disease, unspecified; I10 Essential (primary) hypertension; I71.4 Abdominal aortic aneurysm, without rupture; Z90.79 Acquired absence of other genital organ(s); Z90.49 Acquired absence of other specified parts of digestive tract; F17.210 Nicotine dependence, cigarettes, uncomplicated; F10.11 Alcohol abuse, in remission; F19.11 Other psychoactive substance abuse, in remission; E78.5 Hyperlipidemia, unspecified; F41.9 Anxiety disorder, unspecified; F32.9 Major depressive disorder, single episode, unspecified; Z20.822 Contact with and (suspected) exposure to COVID-19; Z79.82 Long term (current) use of aspirin; Z79.899 Other long term (current) drug therapy; Z88.0 Allergy status to penicillin; Z88.2 Allergy status to sulfonamides; Z88.5 Allergy status to narcotic agent; Z88.8 Allergy status to other drugs, medicaments and biological substances; F43.20 Adjustment disorder, unspecified; Z91.51 Personal history of suicidal behavior